=== PATIENT | male | born 1980 | race Caucasian/White ===

== ENCOUNTER 2016-08-24 13:51 | Emergency (ER) | payer SELFPAY ==
[~2016-08-24] VITALS: Ht 177.8 cm; Wt 76.0 kg
[~2016-08-24 13:51] MED LIST: DOXY100T20 PO; IBUP-1542 PO; MESA500C PO; PRED10TA PO; PRED20TA PO; PRED5 PO; SULF500T5 PO
[2016-08-24 13:57] VITALS: Ht 177.8 cm; Wt 76.0 kg
[2016-08-24] MEDS ORDERED: SULF500T5 PO (14:25)
--- NOTE | 2016-08-24 19:07 | ERD ---
ER Documentation Chief Complaint Date/Time DATE: 08/24/16 TIME: 19:02 Chief Complaint NEEDS MED REFILL ON ULCERATIVE COLITIS MEDS , BLOOD IN STOOL HPI This is a 35-year-old male presenting to the emergency department with a history of ulcerative colitis asking for sulfasalazine refill for UC flare-up. He states he is starting to have blood in stools, denies fevers or abdominal pain. Patient states that he is unable to see his GI specialist and he is in the process of looking for a new one. He states for the past 5 years that when he gets a flare-up of ulcerative colitis that he will takes sulfazaline 500 mg 3 times a day with a taper and it gives him full relief. ROS All systems reviewed and are negative except as per history of present illness. Medications Home Meds Active Scripts Sulfasalazine* (Sulfazine*) 500 Mg Tablet, 500 MG PO DAILY, #30 TAB Prov:KEITH MENESES PA-C 08/24/16 Ibuprofen* (Motrin*) 600 Mg Tab, 600 MG PO Q6, #20 TAB Prov:KRISSY BURROWS MD 01/03/16 Doxycycline Hyclate* (Doxycycline Hyclate*) 100 Mg Tablet.dr, 100 MG PO BID for 10 Days, TAB Prov:KRISSY BURROWS MD 01/03/16 Sulfasalazine* (Sulfazine*) 500 Mg Tablet, 1000 MG PO Q8 for 30 Days, TAB Prov:JACOB CALVO DO 09/18/15 Sulfasalazine* (Sulfazine*) 500 Mg Tablet, 500 MG PO QID, #100 TAB Prov:KRISSY BURROWS MD 08/16/15 Prednisone* (Prednisone*) 10 Mg Tab, 10 MG PO BID for 3 Days, TAB Prov:KRISSY BURROWS MD 08/16/15 Prednisone* (Prednisone*) 5 Mg Tab, 5 MG PO BID for 6 Days, TAB Prov:KRISSY BURROWS MD 08/16/15 Sulfasalazine* (Sulfazine*) 500 Mg Tablet, 500 MG PO BID, #60 TAB Prov:AGNES ALONZO 06/04/15 Prednisone* (Prednisone*) 20 Mg Tab, 40 MG PO DAILY for 4 Days, TAB Prov:AGNES ALONZO 06/04/15 Mesalamine* (Pentasa*) 500 Mg Capsule.sa, 1000 MG PO QID for 30 Days, CAP 5 Refills Prov:JAM MTZ. 12/05/14 Allergies Allergies: Coded Allergies: lorazepam (Verified Allergy, Unknown, rash, 08/24/16) PMhx/Soc History of Surgery: No Anesthesia Reaction: No Hx Neurological Disorder: No Hx Respiratory Disorders: No Hx Cardiac Disorders: No Hx Psychiatric Problems: Yes (hx of anxiety) Hx Miscellaneous Medical Probl: Yes (ulcerative colitis 13 years) Hx Alcohol Use: No Hx Substance Use: Yes (marijuanna) Hx Tobacco Use: No Smoking Status: Never smoker Physical Exam Vitals Vital Signs Date Time Temp Pulse Resp B/P Pulse Ox O2 Delivery O2 Flow Rate FiO2 08/24/16 13:57 98.1 78 18 128/90 98 Physical Exam GENERAL: well-developed/well-nourished, in no apparent distress, non-toxic appearing HENT: NC/AT, moist mucous membranes EYES: Conjunctiva normal NECK: Supple, no lymphadenopathy PULM: CTA bilaterally, no rales, rhonchi, or wheezing heard CV: Normal S1S2, RRR, good capillary refill GI: Soft, non-distended, non-tender to palpation Normal bowel sounds, no masses or organomegaly felt on exam No gross peritonitis, no bruits Negative Rovsing, negative Brown, negative McBurney's point, Negative CVAT BACK: No masses EXT: No clubbing, cyanosis, or edema NEURO: Alert and Orientated SKIN: Intact, normal turgor PSYCH: Normal mood and mentation Procedures/MDM This is a 35-year-old male presenting to the emergency department with a history of ulcerative colitis asking for sulfasalazine refill for UC flare-up. Patient states that he is unable to see his GI specialist and he is in the process of looking for a new one. He states for the past 5 years that when he gets a flare-up of ulcerative colitis that he will takes sulfazaline 500 mg 3 times a day with a taper and it gives him full relief. I have given patient a lengthy discussion to follow-up with a GI specialist due to his condition. Patient is hematuria stable to be discharged home with a prescription for sulfasalazine Departure Diagnosis: Primary Impression: Encounter for medication refill Condition: Stable Patient Instructions: Taking Medicine Safely, Ulcerative Colitis, Management of Ulcerative Colitis: Lifestyle, Management of Ulcerative Colitis: Medications Referrals: NO PRIMARY,CARE PHYSICIAN (PCP) COMM[facility] YOU HAVE RECEIVED A MEDICAL SCREENING EXAM AND THE RESULTS INDICATE THAT YOU DO NOT HAVE A CONDITION THAT REQUIRES URGENT TREATMENT IN THE EMERGENCY DEPARTMENT. FURTHER EVALUATION AND TREATMENT OF YOUR CONDITION CAN WAIT UNTIL YOU ARE SEEN IN YOUR DOCTORS OFFICE WITHIN THE NEXT 1-2 DAYS. IT IS YOUR RESPONSIBILITY TO MAKE AN APPOINTMENT FOR FOLOW-UP CARE. IF YOU HAVE A PRIMARY DOCTOR --you should call your primary doctor and schedule an appointment IF YOU DO NOT HAVE A PRIMARY DOCTOR YOU CAN CALL OUR PHYSICIAN REFERRAL HOTLINE AT IF YOU CAN NOT AFFORD TO SEE A PHYSICIAN YOU CAN CHOSE FROM THE FOLLOWING [facility] [address] [place] [address] [facility] [facility] [address] [facility] [address] [facility] [address] [facility]. [facility] [address] Additional Instructions: FOLLOW UP WITH YOUR PRIMARY CARE PHYSICIAN TOMORROW.Return to this facility if you are not improving as expected. Return to this facility if you are not improving as expected. Take all medicines as directed. KEITH MENESES PA-C Aug 24, 2016 19:07
== END 2016-08-24 14:53 | disposition home or self-care (01) ==
LOC: FTE 13:51
DX: Z76.0 Encounter for issue of repeat prescription (principal)
CPT/HCPCS: 99281

== ENCOUNTER 2017-05-31 17:17 | Emergency (ER) | END 2017-05-31 18:41 | disposition home or self-care (01) ==

== ENCOUNTER 2017-06-10 00:12 | Emergency (ER) | END 2017-06-10 03:52 | disposition left against medical advice (07) ==

== ENCOUNTER 2017-07-24 14:58 | Emergency (ER) | END 2017-07-24 15:50 | disposition home or self-care (01) ==

== ENCOUNTER 2017-08-01 00:07 | Emergency (ER) | END 2017-08-01 03:06 | disposition home or self-care (01) ==

== ENCOUNTER 2018-08-27 13:00 | Emergency (ER) | payer SELFPAY ==
[~2018-08-27] VITALS: Ht 177.8 cm; Wt 80.5 kg
[~2018-08-27 13:00] MED LIST changes: -DOXY100T20 PO; +HYDR30CR75 PR; -IBUP-1542 PO; -MESA500C PO; -PRED20TA PO; -PRED5 PO
[2018-08-27 13:11] VITALS: BP 131/83; PULSE 100; RESP 18; Ht 177.8 cm; Wt 80.5 kg
[2018-08-27] MEDS ORDERED: SULF500T5 PO (13:13)
--- NOTE | 2018-08-27 13:16 | ERD ---
ER Documentation Chief Complaint Chief Complaint med refill HPI 37-year-old male requesting a refill on sulfasalazine for history of ulcerative colitis. He has been on Humira and prednisone the past and is currently stable without bleeding, abdominal pain, vomiting, fevers. Is requesting a refill to prevent a relapse. ROS All systems reviewed and are negative except as per history of present illness. Medications Home Meds Active Scripts Sulfasalazine* (Sulfazine*) 500 Mg Tablet, 1000 MG PO TID, #180 TAB Prov:KRISSY BURROWS MD 08/27/18 Sulfasalazine* (Sulfazine*) 500 Mg Tablet, 1000 MG PO TID for 15 Days, #90 TAB Prov:AGNES ALONZO 08/01/17 Prednisone (Prednisone) 10 Mg Tab, 10 MG PO as directed, #66 TAB Prov:AGNES ALONZO 08/01/17 Hydrocortisone Acetate* (Anusol-HC*) 30 Gm Cream.gm., 1 APPLIC AL BID, #1 TUB 1 Refill Prov:ROMELIA MARTINEZ 06/26/17 Allergies Allergies: Coded Allergies: lorazepam (Verified Allergy, Unknown, rash, 05/31/17) PMhx/Soc History of Surgery: Yes (Gallbladder removed 2011) Anesthesia Reaction: No Hx Neurological Disorder: No Hx Respiratory Disorders: No Hx Cardiac Disorders: No Hx Psychiatric Problems: No Hx Miscellaneous Medical Probl: Yes (ulcerative colitis) Hx Alcohol Use: No Hx Substance Use: No Hx Tobacco Use: Yes (marijuana) FmHx Family History: other (Cancer) Physical Exam Vitals Vital Signs Date Temp Pulse Resp B/P (MAP) Pulse Ox O2 O2 Flow FiO2 Time Delivery Rate 08/27/18 97.8 100 18 131/83 98 13:11 (99) Physical Exam Const: No acute distress Head: Atraumatic Eyes: Normal Conjunctiva ENT: Normal External Ears, Nose and Mouth. Neck: Full range of motion. No meningismus. Resp: Clear to auscultation bilaterally Cardio: Regular rate and rhythm, no murmurs Abd: Soft, non tender, non distended. Normal bowel sounds Skin: No petechiae or rashes Back: No midline or flank tenderness Ext: No cyanosis, or edema Neur: Awake and alert Psych: Normal Mood and Affect Procedures/MDM Well-appearing 37-year-old male presents requesting refill of sulfasalazine. There is no signs of SIRS criteria, abdominal pain, additional concerning signs or symptoms. Will be discharged home with a refill of sulfasalazine and recommended primary care and GI follow-up as well as return precautions for new worsening symptoms.. The patient was stable with no new complaints during the ER course. Clinically, there is no current evidence to suggest meningitis, sepsis, acute abdomen, pneumonia, stroke, acute coronary syndrome, pulmonary embolism, aortic dissection or any other emergent condition appearing to require further evaluation or hospitalization. Patient counseled regarding my diagnostic impression and care plan. Prior to discharge all questions answered. Pt agrees with treatment plan and understands strict return precautions. Pt is instructed to follow up with primary care provider within 24-48 hours. Precautionary instructions provided including instructions to return to the ER if not improving or for any worsening or changing symptoms or concerns. Disclaimer: Inadvertent spelling and grammatical errors are likely due to EHR/dictation software use and do not reflect on the overall quality of patient care. Also, please note that the electronic time recorded on this note does not necessarily reflect the actual time of the patient encounter. Departure Diagnosis: Primary Impression: Ulcerative colitis Ulcerative colitis location: unspecified ulcerative colitis location Digestive disease complication type: unspecified complication Qualified Codes: K51.919 - Ulcerative colitis, unspecified with unspecified complications Additional Impression: Encounter for medication refill Condition: Stable Patient Instructions: Taking Medicine Safely Referrals: NO PRIMARY,CARE PHYSICIAN (PCP) Additional Instructions: Recheck for fevers, vomiting or abdominal pain, blood, new worsening symptoms or with primary doctor, GI. KRISSY BURROWS MD Aug 27, 2018 13:16
== END 2018-08-27 13:16 | disposition home or self-care (01) ==
LOC: FTE 13:00
DX: K51.919 Ulcerative colitis, unspecified with unspecified complications (principal)
CPT/HCPCS: 99281